=== PATIENT | female | born 1950 | race Caucasian/White ===

== ENCOUNTER → 2021-04-04 | Outpatient (CLI) | payer OTHER ==
[~2021-04-04] MED LIST: ADV250INH INH; ALBU0.63 INH; ALBU17IN INH; AMLO10TA PO; AMOX875T2 PO; ASPI81TA86 PO; BYST10TA2 PO; BYST5TAB2 PO; CENTTAB12 PO; FISH5CAP PO; FLUT1SPR2; IPRA0.00 INH; LISI40TA52 PO; PRED-351 PO; PRED20TAB PO; PRIL20CA9 PO; SIMV40TA20 PO; SYMB16INH INH; TIOT18INH INH; ZEBE1TAB PO; ZITH500T PO
--- NOTE | 2021-04-04 09:53 | REP ---
INDICATION: RECURRENT UTI COMPARISON: None TECHNIQUE: Real time wells scale ultrasound examination using curved array transducer. FINDINGS: Bilateral kidneys are normal in contour, size, echogenicity, and reniform shape. No hydronephrosis, nephrolithiasis, renal cystic or mass lesion identified. No perinephric fluid collection. Right kidney measures 9.6 x 5.1 x 4.0 cm. Left kidney measures 10.6 x 5.2 x 4.9 cm. Incidental 1.3 cm cyst within the right lobe of liver. IMPRESSION: 1. Normal renal ultrasound. 2. 1.3 cm hepatic cyst identified in the right lobe. <Electronically signed by Sammy Verma > 04/04/21 0949
== END ==
LOC: M RAD 09:01
DX: N39.0 Urinary tract infection, site not specified (principal)

== ENCOUNTER → 2021-05-05 | Outpatient (CLI) | payer OTHER | LOC: M RAD 11:59 | PROVIDERS: ATTEND Nurse Practitioner Adult Health | DX: I82.A11 Acute embolism and thrombosis of right axillary vein (principal); I82.621 Acute embolism and thrombosis of deep veins of right upper extremity; Z94.2 Lung transplant status ==

== ENCOUNTER → 2021-06-27 | Outpatient (CLI) | payer OTHER ==
--- NOTE | 2021-06-29 04:21 | REP ---
INDICATION: Z94.2, T86.819, R06.00 COMPARISON: 04/04/2016 TECHNIQUE: PA and lateral. FINDINGS: Sternal fixation and mediastinal surgical clips consistent with the given history of lung transplant. Presumed chronic elevation to the right hemidiaphragm and minimal bibasilar fibroatelectatic changes are noted. No focal consolidation. No obvious effusion. No pneumothorax. Skeletal structures relatively normal. IMPRESSION: Chronic/postsurgical changes suggested. No acute cardiopulmonary process. <Electronically signed by Sammy Verma > 06/29/21 0413
== END ==
LOC: M CLY 13:15
DX: T86.819 Unspecified complication of lung transplant (principal); R06.00 Dyspnea, unspecified

== ENCOUNTER → 2021-06-30 | Outpatient (CLI) | payer OTHER ==
--- NOTE | 2021-06-30 12:22 | PFTRPT ---
Height: 63.00 Inches Weight: 165.00 Lbs BSA: 1.78 DATE: 06/30/2021 ORDERING PHYSICIAN: Tanya Smith MD Pre and post bronchodilator studies have excellent technical quality. Forced vital capacity is normal. FEV1 is in proportion. Obstructive index is therefore normal. Expiratory limit of the flow-volume loop is normal. Total lung capacity is normal. Residual volume is in proportion. Diffusing capacity although reduced is appropriate for alveolar volume. Hemoglobin borderline at 11.9. Airway resistance and conductance are normal. IMPRESSION: Essentially normal study. Please correlate clinically. MTDD
--- NOTE | 2021-06-30 12:22 | PFTRPT ---
Site: [facility], [address] [place], [address] ID: [id number] Name: TIARRA HOLDEN Visit Date: 06/30/2021 Second ID: [id number] Referring Doctor: Tanya Smith MD Reviewing Doctor: Vishal Irene MD Adjuster Piano Action: Daniel CODY RRT Age: 71 : 1950 Sex: Female Race: Height: 63.00 Inches Weight: 165.00 Lbs BSA: 1.78 Order IDs: [id number]
== END ==
LOC: M CARPUL 08:43
PROVIDERS: ATTEND Internal Medicine Pulmonary Disease
DX: Z94.2 Lung transplant status (principal)